=== PATIENT | female | born 1980 | race Caucasian/White ===

== ENCOUNTER 2020-01-19 21:39 | Inpatient (IN) | payer BC, OTHER ==
[~2020-01-19] VITALS: Ht 170.2 cm; Wt 118.0 kg
[2020-01-19 22:03] VITALS: BP 118/59
[2020-01-19] MEDS ORDERED: TERBUTALINE 1 MG/ML, 1ML ONE (22:30)
[2020-01-19] MEDS ORDERED: TERBUTALINE 1 MG/ML, 1ML SQ ONE (23:00)
[2020-01-19] MEDS ORDERED: OXYTOCIN 30U/ 0.9% NaCL 500ML 500 ML ONE (23:32)
[2020-01-19] MEDS ORDERED: METOCLOPRAMIDE 5 MG/ML, 2ML ONE ×2 (23:33→23:50)
[2020-01-19] MEDS ORDERED: NEWBORN KIT ONE (23:33)
[2020-01-19] MEDS: LACTATED RINGERS 1,000 ML IV SCH (23:36)
[2020-01-20] MEDS ORDERED: SODIUM CITRATE/CITRIC ACID 30 ML UDC PO ONE
[2020-01-20] MEDS ORDERED: METOCLOPRAMIDE 5 MG/ML, 2ML IV ONE
[2020-01-20] MEDS ORDERED: LACTATED RINGERS 1,000 ML IVBOLUS ONE
[2020-01-20 00:03] LABS: MEAN CORPUSCULAR HGB CONC 32.2 g/dL (32.4-35.8); MEAN PLATELET VOLUME 7.5 fL (7.4-10.4); PLATELET COUNT 185 x10^3/uL (130-400); RED CELL DISTRIBUTION WIDTH 19.7 % (9.6-15.2)
[2020-01-20] MEDS ORDERED: morphine SULFATE/PF 0.5 MG/ML, 10ML ONE (00:06)
[2020-01-20] MEDS ORDERED: DEXAMETHASONE 4 MG/ML, 1ML ONE (00:07)
[2020-01-20] MEDS ORDERED: CEFAZOLIN 1,000 MG ONE (00:07)
[2020-01-20] MEDS ORDERED: KETOROLAC 30 MG/1 ML ONE (00:07)
[2020-01-20] MEDS ORDERED: WATER-INJECTION,STERILE 10 ML IV ONE (00:07)
[2020-01-20] MEDS ORDERED: OXYTOCIN 10 UNITS/ML, 1ML ONE (00:07)
[2020-01-20] MEDS ORDERED: ONDANSETRON 2MG/ML, 2ML ONE (00:07)
[2020-01-20 00:41] LABS: BASOPHILS # (AUTO) 0.05 x10^3/uL (0-0.1); BASOPHILS % (AUTO) 1 % (0-1); EOSINOPHILS # (AUTO) 0.02 x10^3/uL (0-0.4); EOSINOPHILS % (AUTO) 0 % (1-7); LYMPHOCYTES # (AUTO) 2.22 x10^3/uL (1-3.4); LYMPHOCYTES % (AUTO) 23 % (22-44); MD SCAN; MONOCYTES % (AUTO) 4 % (2-9); NEUTROPHILS # (AUTO) 7.02 x10^3/uL (1.8-6.8); NEUTROPHILS % (AUTO) 72 % (42-75)
[2020-01-20] MEDS ORDERED: ASPI81TA59 PO (00:49)
[2020-01-20] MEDS ORDERED: SERT25TA PO (00:49)
[2020-01-20] MEDS ORDERED: PREN-3 PO (00:49)
[2020-01-20] MEDS: KETOROLAC 30 MG/1 ML IV SCH ×4 (01:00→22:47)
[2020-01-20] MEDS ORDERED: MORPHINE SULFATE 4 MG/ML, 1ML IVPush PRN ×2 (01:00→03:30)
[2020-01-20] MEDS ORDERED: IBUPROFEN 600 MG TABLET PO PRN (01:00)
[2020-01-20] MEDS ORDERED: OXYcodone/APAP 5/325MG TABLET PO PRN (01:00)
[2020-01-20] MEDS ORDERED: MISOPROSTOL 200 MCG TABLET PR PRN (01:00)
[2020-01-20] MEDS: LACTATED RINGERS 1,000 ML IV SCH ×9 (01:00→23:36)
[2020-01-20] MEDS ORDERED: OXYcodone IR 5MG TABLET PO PRN (01:00)
[2020-01-20] MEDS ORDERED: SIMETHICONE 80 MG CHEW TAB PO PRN (01:00)
[2020-01-20] MEDS: OXYTOCIN 30U/ 0.9% NaCL 500ML 500 ML IV SCH ×3 (01:00→21:00)
[2020-01-20] MEDS ORDERED: ONDANSETRON 2MG/ML, 2ML IV PRN (01:00)
[2020-01-20] MEDS: KETOROLAC 30 MG/1 ML IVPush SCH ×4 (01:00→19:00)
[2020-01-20] MEDS ORDERED: DIPHENHYDRAMINE 50 MG/ML, 1ML ONE (02:23)
[2020-01-20] MEDS ORDERED: DIPHENHYDRAMINE 50 MG/ML, 1ML IVPush PRN (02:30)
[2020-01-20] MEDS ORDERED: DIPHENHYDRAMINE 50 MG/ML, 1ML IV PRN (03:30)
[2020-01-20] MEDS ORDERED: ONDANSETRON 2MG/ML, 2ML IVPush PRN (03:30)
[2020-01-20] MEDS ORDERED: NO SEDATIVES, TRANQUILIZERS OR ANTIEMETICS XX SCH (03:30)
[2020-01-20] MEDS ORDERED: NALOXONE 0.4 MG/ML, 1ML IV PRN (03:30)
[2020-01-20] MEDS ORDERED: EPHEDRINE 50 MG/ML, 1ML IVPush PRN (03:30)
[2020-01-20 03:31] VITALS: BP 104/69
[2020-01-20 07:00] VITALS: BP 104/66
[2020-01-20] MEDS: DOCUSATE 100 MG CAPSULE PO PRN ×2 (07:40→22:47)
[2020-01-20] MEDS: PRENATAL VIT/IRON/FA 1 EACH TABLET PO SCH (07:40)
[2020-01-20 09:13] LABS: MEAN CORPUSCULAR HEMOGLOBIN 27.6 pg (27.0-34.8); MEAN CORPUSCULAR HGB CONC 31.8 g/dL (32.4-35.8); MEAN CORPUSCULAR VOLUME 86.8 fL (80-100); MEAN PLATELET VOLUME 7.2 fL (7.4-10.4); PLATELET COUNT 164 x10^3/uL (130-400); RED BLOOD COUNT 3.59 x10^6/uL (3.82-5.3); RED CELL DISTRIBUTION WIDTH 20.6 % (9.6-15.2)
[2020-01-20 09:40] LABS: BASOPHILS # (AUTO) 0.03 x10^3/uL (0-0.1); BASOPHILS % (AUTO) 0 % (0-1); EOSINOPHILS % (AUTO) 0 % (1-7); LYMPHOCYTES # (AUTO) 1.03 x10^3/uL (1-3.4); LYMPHOCYTES % (AUTO) 9 % (22-44); MD SCAN; MONOCYTES # (AUTO) 0.27 x10^3/uL (0.2-0.8); MONOCYTES % (AUTO) 2 % (2-9); NEUTROPHILS # (AUTO) 10.17 x10^3/uL (1.8-6.8); NEUTROPHILS % (AUTO) 89 % (42-75)
[2020-01-20 12:00] VITALS: BP 110/72
[2020-01-20 16:00] VITALS: BP 108/67
[2020-01-20] MEDS ORDERED: LACTATED RINGERS 500 ML IVBOLUS ONE (19:00)
[2020-01-20 19:45] VITALS: BP 125/80
[2020-01-21 00:03] VITALS: BP 104/68
[2020-01-21] MEDS: LACTATED RINGERS 1,000 ML IV SCH ×8 (01:00→23:36)
[2020-01-21] MEDS: KETOROLAC 30 MG/1 ML IV SCH ×4 (04:43→23:00)
[2020-01-21] MEDS: OXYTOCIN 30U/ 0.9% NaCL 500ML 500 ML IV SCH ×2 (07:00→17:00)
[2020-01-21 07:30] VITALS: BP 102/69
[2020-01-21] MEDS: DOCUSATE 100 MG CAPSULE PO PRN (10:54)
[2020-01-21] MEDS: PRENATAL VIT/IRON/FA 1 EACH TABLET PO SCH (10:54)
[2020-01-21 19:20] VITALS: BP 109/73
[2020-01-22] MEDS ORDERED: DIPHENHYDRAMINE 25 MG CAPSULE ONE (00:25)
[2020-01-22] MEDS: LACTATED RINGERS 1,000 ML IV SCH ×2 (01:00→03:00)
[2020-01-22] MEDS: OXYTOCIN 30U/ 0.9% NaCL 500ML 500 ML IV SCH (03:00)
[2020-01-22] MEDS: ACETAMINOPHEN 325 MG TABLET PO PRN (07:41)
[2020-01-22] MEDS: PRENATAL VIT/IRON/FA 1 EACH TABLET PO SCH (07:41)
[2020-01-22] MEDS: DOCUSATE 100 MG CAPSULE PO PRN (07:41)
[2020-01-22] MEDS: FERROUS GLUCONATE 324 MG TABLET PO SCH ×2 (09:00→18:30)
[2020-01-22] MEDS ORDERED: ACETAMINOPHEN 500 MG TABLET PO ONE (16:00)
[2020-01-23 07:20] VITALS: BP 109/70
[2020-01-23] MEDS: FERROUS GLUCONATE 324 MG TABLET PO SCH ×2 (10:19→17:24)
[2020-01-23] MEDS: PRENATAL VIT/IRON/FA 1 EACH TABLET PO SCH (10:19)
[2020-01-23] MEDS: ACETAMINOPHEN 325 MG TABLET PO PRN ×2 (13:11→21:04)
[2020-01-23 21:00] VITALS: BP 127/74
[2020-01-23] MEDS: DOCUSATE 100 MG CAPSULE PO PRN (21:04)
[2020-01-24 07:05] VITALS: BP 123/76
[2020-01-24] MEDS ORDERED: OXYC-302 PO (09:47)
[2020-01-24] MEDS: FERROUS GLUCONATE 324 MG TABLET PO SCH (09:50)
[2020-01-24] MEDS: DOCUSATE 100 MG CAPSULE PO PRN (09:50)
[2020-01-24] MEDS: PRENATAL VIT/IRON/FA 1 EACH TABLET PO SCH (09:50)
[2020-01-24] MEDS: ACETAMINOPHEN 325 MG TABLET PO PRN (09:50)
== END 2020-01-24 13:22 | disposition home or self-care (01) | DRG 788 ==
LOC: LDOP 21:39 → LDIP 23:39 → 2NW 01-20 02:55
PROVIDERS: ADMIT Obstetrics & Gynecology; ATTEND Obstetrics & Gynecology
PROC: 10D00Z1 Extraction of Products of Conception, Low, Open Approach (ICD-10-PCS; principal; 2020-01-20)
DX: O62.9 Abnormality of forces of labor, unspecified (principal); O35.1XX0 Maternal care for (suspected) chromosomal abnormality in fetus, not applicable or unspecified; O32.1XX0 Maternal care for breech presentation, not applicable or unspecified; Z3A.37 37 weeks gestation of pregnancy; Z37.0 Single live birth; Z67.10 Type A blood, Rh positive; Z79.82 Long term (current) use of aspirin; Z79.899 Other long term (current) drug therapy; Z20.828 Contact with and (suspected) exposure to other viral communicable diseases
CPT/HCPCS: 36415; 85025; 86592; 86850; 86900; G0378; J0690; J1100; J1885; J2274; J2405; J1200; J2590; J2765; J3105; J7120